=== PATIENT | female | born 1995 | race Caucasian/White ===

== ENCOUNTER 2016-11-17 06:28 | Inpatient (IN) ==
--- NOTE | 2016-11-17 05:46 | OB/GYN History & Physical ---
Date of Encounter: 11/17/16 Time of Encounter: 05:41 Assessment and Plan (1) 39 weeks gestation of Current visit: Yes Status: Acute SROM SVE by RN with cervical changes 1-2/90%/0 Admit to labor and delivery for SROM Continue FHR and toco GBS negative A positive blood type IV fluids Will augment labor if needed for adequate contraction pattern Pain medication or epidural if requested Anticipate , will discuss option for elective per patient (2) Spontaneous rupture of amniotic membranes Current visit: Yes Status: Acute Nitrazine positive History of Present Illness Chief complaint: LABOR EVAL, SROM? HPI: Ms. Medellin is a 21 year old female 39 weeks 5 days presents for possible rupture of membranes. This occurred around 0310 this morning. She reports large gush of clear fluid. She has been leaking ever since. Denies any contractions. Reports spotting since last OB visit from [facility] [place]. She follows with the midwives Sarah and Bharti. has been complicated with a shortened cervix. Denies any recent illness, fever, cough, shortness of breath or abdominal pain. Last meal was at 2300. She has been drinking water on the way here to the hospital. Smokes 7 cigarettes a day during . Prior history of wisdom teeth extraction, no complications to anesthesia. Allergy to penicillin. She takes vitamins and Subutex/Suboxone. Reports good movement. Nitrazine test is positive. GBS is negative. Hep B is nonreactive. Rubella positive. Other serologies reviewed and negative. Her blood type is A positive. Past Med Surg Social Fam HX - Past Medical History Attestation: Yes The following information was validated with the patient. Source: patient Medical history: no medical history Obstetrical History - Pregnancies : 1 Para: 0 Term: 0 : 0 Ab's: 0 Livin Review of System OB All systems PM: reviewed and no additional remarkable complaints except as stated Exam - Constitutional Constitutional: well developed, well nourished, no acute distress, average body habitus - HEENT HEENT: Normocephaly, Mucus Membranes Moist - Neck Neck exam: full ROM, normal inspection - Lungs Respiratory exam: CTAB - Cardiovascular Cardiovascular exam: RRR, +S1, +S2 - Abdomen Abdomen: Present: bowel sounds normal, gravid, non tender - Extremities Extremities exam: normal capillary refill, normal inspection, pedal edema, radial pulses palpable and symetrical - Vagina Vagina: Present: normal moisture. Absent: discharge - Cervix Dilation: 1 (per RN) Effacement: 90 (per RN) Station: 0 - Uterus Uterus exam: Present: normal size Results Result Diagrams: 11/17/16 06:08 All other labs normal.
[2016-11-17 06:17] LABS: Basophils % 0.3 %; Eosinophils % 0.1 %; Hematocrit 37.9 % (35.3-44.9); Immature Granulocytes % 0.5 % (0-4); Lymphocytes # 2.5 K/mcL (0.6-4.6); Lymphocytes % 15.7 %; Mean Corpuscular HGB Conc 34.3 g/dL (31.6-35.5); Mean Corpuscular Volume 87.3 fL (83.0-100.0); Mean Platelet Volume 10.6 fL (9.4-12.4); Monocytes # 0.8 K/mcL (0.0-1.3); Monocytes % 4.7 %; Neutrophils # 12.4 K/mcL (1.6-8.9); Platelet Count 137 K/mcL (140-400); Red Blood Count 4.34 M/mcL (3.82-4.97); Red Cell Distribution Width 12.7 % (11.5-14.5); Segmented Neutrophils % 78.7 %
[~2016-11-17 06:28] MED LIST: Famotidine 20 MG/2 ML VIAL IVP PRN; Metoclopramide 10 MG/2 ML VIAL IVP PRN; Naloxone 0.4 MG/ML INJ IVP PRN; Ringers Solution, Lactated 1,000 ML IVC SCH; Ringers Solution, Lactated 1,000 ML ONE
--- NOTE | 2016-11-17 08:22 | OB Labor Progress Note ---
Date of Encounter: 11/17/16 Time of Encounter: 08:20 Labor Progress Note - Subjective Subjective: Patient sitting in bed. Patient denies any pain. Patient states at this time she would like to proceed with vaginal delivery. Patient reports she once and an "itchy bump" and wasn't sure if that could have been herpes or not. - Cervix Cervix: 3/100/0 - Heart Tones Heart Tones: 135 bpm moderate variability +15x15 accels no decels noted. CAt. 1 tracing. - [place]: 3-5 min apart - Interventions Interventions: SVE, Speculum exam: no lesions noted internally or externally. - Plan Plan: Continue labor management. Patient may have epidural when desires.
[2016-11-17] MEDS ORDERED: Oxytocin 20 units/ LR 1000 mL 20 UNIT/1,000 ML BAG IVC SCH ×2 (10:45→20:32)
[2016-11-17] MEDS ORDERED: Bupivacaine-MPF 0.25% 10 ML VIAL EP ONE (12:58)
[2016-11-17] MEDS ORDERED: *HR* FentaNYL (PF) 100 MCG/2 ML VIAL EP ONE (12:58)
[2016-11-17] MEDS ORDERED: Epidural Premix (fent/bupiv) 110 ML EP SCH (13:00)
[2016-11-17] MEDS ORDERED: *HR* FentaNYL (PF) 100 MCG/2 ML VIAL ONE (13:01)
[2016-11-17] MEDS ORDERED: Bupivacaine-MPF 0.25% 10 ML VIAL ONE (13:01)
[2016-11-17] MEDS ORDERED: Epidural Premix (fent/bupiv) 110 ML EP ONE (13:02)
--- NOTE | 2016-11-17 13:47 | Anesthesia Evaluation PreOp ---
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: Other (sciatic nerve irritation with ) Other Medical History: GERD, Other (hx substance abuse,) Anesthesia History: No Prior Anesthetic Complications (wisdom teeth, laser eye surgery) : Yes Test: Positive Alcohol Use: none Drug use: cocaine, opiates, other Medications and Allergies Formula Tablet 1 tab PO DAILY 11/17/16 [History] Subutex 8 mg PO BID 11/17/16 [History] Allergies Penicillins [PCN] Adverse Reaction (Verified 11/17/16 05:53) Hives - Meds/Allergy Pre-op Review Medications Reviewed: Yes Allergies Reviewed: Yes Beta Blockers on Current Med List: No Anesthesia Results - Labs 11/17/16 06:08 Anesthesia Exam Vital Signs/O2 Sat, Most Current Temp Pulse Resp BP 99.3 F 115 16 136/90 11/17/16 05:37 11/17/16 05:37 11/17/16 05:37 11/17/16 05:37 Height: 64 Weight: 54 kg NPO (# of Hours): 8 hours solids Pain Scale: 5 Pain Scale Used: Numeric (1 - 10) - HEENT Pupil (Motor): Pupils equal Mallampati: II Teeth: Normal Oral Opening: Less than or equal to 3 - NEWS CAMERA OPERATOR LOC: Oriented NEWS CAMERA OPERATOR Motor: Normal RUE, Normal LUE, Normal RLE, Normal LLE, Normal Face NEWS CAMERA OPERATOR Sensory: Normal: RUE, LUE, RLE, LLE, Face - Cardiac Rhythm: Regular Murmur: None JVD: No Carotid Bruit: No - Pulmonary Breath Sounds: bilateral Clear Respiratory Effort: Symmetrical Anesthesia Assess/Plan ASA Score: 2 Modified [place] Scale for Level of Consciousness: Drowsy, but responsive to commands Anesthetic Plan: Regional Monitoring Plan: Standard Monitors Recovery Plan: Other
--- NOTE | 2016-11-17 13:51 | Anesthesia Procedures ---
Date of Encounter: 11/17/16 Time of Encounter: 13:20 Procedures: Anesthesia - Epidural/Spinal Patient ID/Chart reviewed: Yes Patient examined: Yes OB Eval: Gestational age: 39 weeks 5 days OB Eval: : 1 OB Eval: Hx Para: 0 OB Eval: Dilated at (cm): 4 OB Eval: Contractions: Non-stressed pattern Consent Obtained: Yes Supplemental Oxygen: None/Room Air Site Prep: Aseptic Technique, Sterile prep and drape, Povidone-Iodine 1% Patient position: upright Local Anesthetic: Lidocaine 1% Amount of Local Anesthetic used: 3 Touhy Needle Gauge: 18 Touhy Needle Depth (cm): 3 Catheter Depth at Skin (cm): 10 Test Dose (1.5% Lido + Epi): Volume given (mls): 3 Test Dose Result: Negative Loading Dose: 0.25% Marcaine (mls): 5 Loading Dose: Fentanyl (mcg): 100 Loading Dose: Other: 3 ml saline Loading Dose Administered: Thru Catheter Infusion Med: 0.125% Bupivacaine w/ 2 mcg/ml Fentanyl Infusion Rate (mls/hr): [address]: Tegaderm Interspace Used: L3-L4 Loss of Resistance (YOHANA): Yes (air) Blood: No CSF: No Paresthesia: No Procedure: 3 Vital Signs Time 1320 start 1325 test dose 1330 bolus 1338 finish pump started BP 128/88 120/84 114/75 106/59 Pulse 73 66 75 67 Resp 18 16 16 16 O2 Sat 99 98 98 98 heart tones 120's throughout
--- NOTE | 2016-11-17 16:40 | OB Labor Progress Note ---
Date of Encounter: 11/17/16 Time of Encounter: 16:37 Labor Progress Note - Subjective Subjective: Patient comfortable with epidural in place. Patient denies any pain at this time. - Cervix Cervix: 6/100/1 - Heart Tones Heart Tones: 130 bpm moderate variability +15x15 accels no decels noted. Cat. 1 tracing. - [place]: 2-5 min apart - Interventions Interventions: SVE, IUPC placed without difficulty. Patient tolerated well. Patient repositioned to right side with peanut ball. - Plan Plan: Continue labor management.
--- NOTE | 2016-11-17 19:57 | OB/GYN Procedure Note ---
Delivery - Delivery Date: 11/17/16 Provider: Sarah Knutson (DO Trell at bedside ) Intrapartum events: none Delivery induction: none Delivery augmentation: pitocin Delivery monitor: external FHT, external uterine, internal uterine Anesthesia: epidural Estimated Blood Loss: 150 - Infant (s) Infant A Delivery Date: 11/17/16 Delivery Time: 19:10 Presentation: vertex Position: HAYLIE Route of delivery: Gender: Female Viability: Viable Pounds: 6 Ounces: 2 Weight Gram: 2.78 kg at 1 minute: 8 at 5 mins: 9 Shoulder Dystocia: not encountered Placenta: spontaneous, uterine exploration Cord: 3 umbilical vessels - Repair Episiotomy: none Laceration Description: Periurethral (bilateral. Left side repaired with 4-0 vicryl. ) - Complications Delivery complications: none - Disposition Mom disposition: stable in LDR disposition: stable in LDR - Comments Comments: Called to LDR, patient complete and +[address] Cai present for delivery for observation. Patient placed in stirrups and prepped for delivery. Patient began pushing with contractions. female , no shoulder dystocia, no meconium and no nuchal was encountered. Infant was placed on maternal abdomen. Cord was cut after pulsation ceased. Bilateral periurethral lacerations noted. Right side was hemostatic left side was repaired with 4-0 vicryl. Placenta delivered spontaneously and intact. 3 vessel cord was noted. Pericare provided per RN. All counts correct. Both mother and infant are stable in LDR.
[2016-11-17] MEDS ORDERED: Benzocaine/Menthol 56 GM AEROSOL SPRAY TP PRN (20:32)
[2016-11-17] MEDS ORDERED: Acetaminophen 325 MG TABLET PO PRN (20:32)
[2016-11-17] MEDS ORDERED: Lanolin 7 G OINT...G. TP PRN (20:32)
[2016-11-17] MEDS: Ibuprofen 600 MG TABLET PO PRN (21:40)
[2016-11-18] MEDS: Prenatal Vit/FA 1 EACH TABLET PO SCH (09:25)
--- NOTE | 2016-11-18 15:56 | OB/GYN Progress Note ---
Date of Encounter: 11/18/16 Time of Encounter: 15:54 - Assessment and Plan (1) (normal spontaneous vaginal delivery) Current Visit: Yes Status: Acute Pt meeting day 1 milestones. Anticipate discharge home PPD#2. (2) Mother currently breast-feeding Current Visit: Yes Status: Acute Subjective - Subjective Patient reports: appetite normal, voiding normally, pain well controlled, ambulating normally [place]: doing well Objective - Latest Vital Signs Latest vital signs: Vital Signs Temp Pulse Resp BP Pulse Ox 11/18/16 08:00 98.1 F 57 12 123/75 96 11/18/16 04:33 98.0 F 52 12 115/68 96 11/17/16 23:37 97.9 F 51 12 136/79 97 11/17/16 23:35 12 11/17/16 22:20 98.3 F 54 16 125/78 97 11/17/16 21:28 97.5 F L 54 16 131/74 98 11/17/16 21:20 16 11/17/16 21:09 97.6 F 56 12 143/81 99 Intake and Output 11/17/16 11/18/16 11/18/16 23:59 07:59 15:59 Intake Total 350 / 350 0 / 0 Output Total 0 / 0 1600 / 1600 800 / 800 Balance 350 / 350 -1600 / -1600 -800 / -800 Intake: Oral 350 / 350 0 / 0 Output: Urine 0 / 0 1600 / 1600 800 / 800 Other: Meal Lunch Percent of Meal Consumed 60% Weight 53.1 kg Patient Weight 11/18/16 23:59 Weight 53.1 kg - Exam Lungs: bilateral: normal Chest: Normal S1, Normal S2 Extremities: Present: normal, edema (mild edema bilaterally) Abdomen: Present: soft. Absent: tenderness Uterus: Present: firm. Absent: tenderness Uterus Position: 1 Finger Below Umbilicus
[2016-11-18] MEDS: SUBUTEX 8MG PO SCH (18:48)
[2016-11-18] MEDS: Ibuprofen 600 MG TABLET PO PRN (19:40)
[2016-11-19] MEDS: Prenatal Vit/FA 1 EACH TABLET PO SCH (08:02)
[2016-11-19] MEDS: SUBUTEX 8MG PO SCH (09:04)
--- NOTE | 2016-11-19 10:22 | Discharge Summary ---
Date of Encounter: 11/19/16 Time of Encounter: 10:18 - Discharge Diagnosis (1) Mother currently breast-feeding Priority: Secondary Status: Acute (2) (normal spontaneous vaginal delivery) Priority: Primary Status: Acute Comments: Pt states she is tired, but otherwise feeling well. Pain well managed on po pain medication. Voiding well. No BM yet, but only usually goes every 3 days. - Discharge Medications Prescriptions: Ibuprofen [Motrin] 600 mg PO Q6HR PRN #60 tablet PRN Reason: Cramping Docusate [Colace] 100 mg PO BID #60 capsule Home Medications: Formula Tablet 1 tab PO DAILY 11/17/16 [History] Subutex 8 mg PO BID 11/17/16 [History] Acetaminophen [Tylenol] 650 mg PO Q6HR PRN #0 tablet 11/19/16 [Rx] Benzocaine/Menthol [place] [Dermoplast [place]] 1 appl TP QID PRN #0 aerosol [Rx] Breast Pump [BREAST PUMP] 1 each .ROUTE AD #1 each 11/19/16 [Rx] Docusate [Colace] 100 mg PO BID #60 capsule 11/19/16 [Rx] Ibuprofen [Motrin] 600 mg PO Q6HR PRN #60 tablet 11/19/16 [Rx] Lanolin [Lansinoh] 1 appl TP TID PRN #0 oint...g. 11/19/16 [Rx] Vit/FA 1 each PO DAILY tablet 11/19/16 [Rx] Allergies/Adverse Reactions: Allergies Penicillins [PCN] Adverse Reaction (Verified 11/17/16 05:53) Hives Data Procedures and tests throughout hospitalization: Laboratory Tests 11/17/16 06:08 WBC 15.8 H RBC 4.34 Hgb 13.0 Hct 37.9 MCV 87.3 MCH 30.0 MCHC 34.3 RDW 12.7 Plt Count 137 L MPV 10.6 Immature Gran % 0.5 Seg Neutrophils % 78.7 Lymphocytes % 15.7 Monocytes % 4.7 Eosinophils % 0.1 Basophils % 0.3 Neutrophils # 12.4 H Lymphocytes # 2.5 Monocytes # 0.8 Eosinophils # 0.0 Basophils # 0.0 Date of admission: 11/17/16 06:28 Primary care physician: PCP NO Consults: 11/17/16 20:32 Consult to Goring Cutter [CONS] Routine Comment: Vaginal delivery, consult needed Consult to [place] [CONS] Routine Reason for SW Consult: subutex, 5 day hold. Discharging clinician: Aurelia Mancilla Anticipated date of discharge: 11/19/16 - Patient Status Disposition: Home, Self-Care Condition: Good Functional capacity at discharge: independent ambulation Overall status at discharge: patient is back to baseline - Discharge Instructions Follow Up With: NO,PCP [Primary Care Provider] - Bharti Quispe CNM [Non-Partnered Physician] - - Diet and Activity Activity: resume usual activities as tolerated Diet: advance to your usual diet Hospital Course Reason for admission: rupture of membranes, IUP at term Delivery: Episiotomy: none Laceration: other (periuretheral) Other procedures: none complications: none Discharge diagnosis: IUP at term delivered [place] baby: female Hospital course: Delivery - Delivery Date: 11/17/16 Provider: Sarah Knutson, at bedside ) Intrapartum events: none Delivery induction: none Delivery augmentation: pitocin Delivery monitor: external FHT, external uterine, internal uterine Anesthesia: epidural Estimated Blood Loss: 150 - Infant (s) Infant A Infant Delivery Date: 11/17/16 Infant Delivery Time: 19:10 Presentation: vertex Position: HAYLIE Route of delivery: Gender: Female Viability: Viable Pounds: 6 Ounces: 2 Weight Gram: 2.78 kg at 1 minute: 8 at 5 mins: 9 Shoulder Dystocia: not encountered Placenta: spontaneous, uterine exploration Cord: 3 umbilical vessels - Repair Episiotomy: none Laceration Description: Periurethral (bilateral. Left side repaired with 4-0 vicryl. ) - Complications Delivery complications: none - Disposition Mom disposition: stable in LDR disposition: stable in LDR - Comments Comments: Called to LDR, patient complete and +[address] Cai present for delivery for observation. Patient placed in stirrups and prepped for delivery. Patient began pushing with contractions. female infant, no shoulder dystocia, no meconium and no nuchal was encountered. was placed on maternal abdomen. Cord was cut after pulsation ceased. Bilateral periurethral lacerations noted. Right side was hemostatic left side was repaired with 4-0 vicryl. Placenta delivered spontaneously and intact. 3 vessel cord was noted. Pericare provided per RN. All counts correct. Both mother and are stable in LDR. Time Attestation: Total time spent providing and/or coordinating discharge services: Time Spent: Less than 30 minutes Exam - Constitutional Vitals: Temp Pulse Resp BP Pulse Ox 97.8 F 56 14 137/79 99 11/19/16 07:30 11/19/16 07:30 11/19/16 07:30 11/19/16 09:53 11/18/16 19:35 General appearance IM: A&O X 3, no acute distress - Respiratory Respiratory exam: Present: CTAB - Cardiovascular Cardiovascular exam IM: Present: RRR, +S1, +S2 - GI/Abdominal GI/Abdominal exam IM: normal bowel sounds, soft - Uterine Tone: Firm Uterus Position: At Umbilicus, Midline - Extremities Exam Extremities exam IM: Present: normal inspection - Neurological Exam Neurological exam: normal gait, oriented X3 - Psychiatric Additional comments: Pt reports good mood.
[2016-11-19 11:54] VITALS: BP 119/75
[2016-11-19] MEDS: Ibuprofen 600 MG TABLET PO PRN (13:11)
== END 2016-11-19 13:33 | disposition home or self-care (01) | DRG 560 ==
LOC: 1NENULAB → 1NENUOBS 22:24
PROVIDERS: ADMIT Registered Nurse; ATTEND Registered Nurse